=== PATIENT | female | born 1970 | race Caucasian/White ===

== ENCOUNTER → 2018-05-05 | Outpatient (CLI) | payer OTHER ==
[~2018-05-05] MED LIST: MULT-224 PO
== END ==
LOC: STAR 10:40
PROVIDERS: ATTEND Specialist
DX: Z02.9 Encounter for administrative examinations, unspecified (principal)

== ENCOUNTER 2018-05-09 10:27 | Day surgery (SDC) | payer OTHER ==
[~2018-05-09] VITALS: Ht 165.1 cm; Wt 72.2 kg
[~2018-05-09 10:27] MED LIST changes: +BUPIVACAINE 0.25% ONE; +SILVER NITRATE STICK TP ONE
[2018-05-09] MEDS ORDERED: LACTATED RINGERS 1,000 ML IV SCH (10:48)
[2018-05-09 10:57] VITALS: BP 118/88
[2018-05-09] MEDS ORDERED: ACETAMINOPHEN 500 MG TABLET PO ONE (11:00)
[2018-05-09] MEDS ORDERED: ONDANSETRON ODT 8 MG PO ONE (11:00)
[2018-05-09] MEDS ORDERED: SCOPOLAMINE PATCH, 1.5MG PATCH.TD72 TD ONE (11:00)
[2018-05-09 11:21] LABS: HCG UR SG 1.014 (1.003-1.030)
[2018-05-09] MEDS ORDERED: MIDAZOLAM 1 MG/ML, 2ML ONE (13:02)
[2018-05-09] MEDS ORDERED: FENTANYL PF 250 MCG/5ML ONE (13:02)
[2018-05-09] MEDS ORDERED: DEXAMETHASONE 4 MG/ML, 1ML ONE ×2 (13:03)
[2018-05-09] MEDS ORDERED: PROPOFOL 10 MG/ML, 20ML ONE (13:03)
[2018-05-09] MEDS ORDERED: FENTANYL PF 100 MCG/2ML IV PRN (13:30)
[2018-05-09] MEDS ORDERED: MEPERIDINE/PF 25MG/0.5ML IVPush PRN (13:30)
[2018-05-09] MEDS ORDERED: PROMETHAZINE 25 MG/ML, 1ML IV PRN (13:30)
[2018-05-09] MEDS ORDERED: PROMETHAZINE 25 MG SUPP PR PRN (13:30)
[2018-05-09] MEDS ORDERED: MORPHINE SULFATE 4 MG/ML, 1ML IVPush PRN (13:30)
[2018-05-09] MEDS ORDERED: OXYcodone 5 MG/5 ML ORAL.SOL UDC PO PRN (13:30)
[2018-05-09] MEDS ORDERED: ONDANSETRON ODT 8 MG PO PRN (13:30)
[2018-05-09] MEDS ORDERED: LABETALOL 5MG/ML, 20ML IV PRN (13:30)
[2018-05-09] MEDS ORDERED: PROMETHAZINE 12.5 MG SUPP PR PRN (13:30)
[2018-05-09] MEDS ORDERED: hydrALAzine 20 MG/ML, 1ML IV PRN (13:30)
[2018-05-09] MEDS ORDERED: ONDANSETRON 2MG/ML, 2ML IV PRN (13:30)
[2018-05-09] MEDS ORDERED: HYDROmorphone 1 MG/ML, 1ML IV PRN (13:30)
[2018-05-09] MEDS ORDERED: KETOROLAC 30 MG/1 ML ONE (14:03)
== END 2018-05-09 16:15 ==
LOC: OUT 10:27
PROVIDERS: ATTEND Specialist
DX: N92.1 Excessive and frequent menstruation with irregular cycle (principal); D25.9 Leiomyoma of uterus, unspecified; N94.6 Dysmenorrhea, unspecified
CPT/HCPCS: 58563; 81025; 88305; J1100; J1885; J2250; J2704; J3010; J3490; Q0162